=== PATIENT | female | born 1965 | race Caucasian/White ===

== ENCOUNTER 2019-08-23 05:22 | Emergency (ER) | payer OTHER ==
[~2019-08-23] VITALS: Ht 172.7 cm; Wt 90.7 kg
[~2019-08-23 05:22] MED LIST: ASCO1ER; Bactrim Ds Tab1 EACH PO; CYCL10 PO; HYDACE5 PO; IBUP200; METF500 PO; NAPR550 PO; OXYACE10 PO; RXCYCL10 PO; RXHYDACE PO; RXNAPNA550 PO; RXOXYACE PO; RXSULTRIDS PO; SULTRIDS PO; Ultram50 MG PO
[2019-08-23] MEDS ORDERED: LOSARTAN POTASS50 MG PO (05:29)
[2019-08-23] MEDS ORDERED: Percocet 7.5-31 EACH PO (07:03)
[2019-08-23] MEDS ORDERED: Crutch1 EACH MISC (07:04)
== END 2019-08-23 07:25 | disposition home or self-care (01) ==
LOC: ER 05:22
DX: S82.852A Displaced trimalleolar fracture of left lower leg, initial encounter for closed fracture (principal); E11.9 Type 2 diabetes mellitus without complications; Z88.1 Allergy status to other antibiotic agents; Z79.84 Long term (current) use of oral hypoglycemic drugs; W10.9XXA Fall (on) (from) unspecified stairs and steps, initial encounter
CPT/HCPCS: 27818; 73090; 73590; 73600; 73610; 82947; 96374-59; 99283-25; J2250; J3010

== ENCOUNTER 2019-08-24 10:26 | Inpatient (IN) | payer OTHER ==
[~2019-08-24] VITALS: Ht 172.7 cm; Wt 95.5 kg
[~2019-08-24 10:26] MED LIST changes: +Crutch1 EACH MISC; +LOSARTAN POTASS50 MG PO; +Percocet 7.5-31 EACH PO
--- NOTE | 2019-08-24 11:27 | NUR ---
History, Chart, Medications and Allergies reviewed before start of procedure. Lungs clear T/O to Auscultation. Patient confirms NPO status and agrees with scheduled surgery. Pre-Op teaching done. Pt verbalizes understanding. Patient States Post-Procedure ride home has been arranged.
--- NOTE | 2019-08-24 11:32 | NUR ---
1123 NEW ORDERS TO TREAT FOR PAIN CONTROL. WILL GIVE FENTANYL 25MCG IVP UP TO 100MCG MAX. PAIN TO LEFT ANKLE 09/09 1125 FENTANYL 25MCG IVP GIVEN. 1130 FENTANYL 25MCG IVP GIVEN. PAIN LEVEL 8/10
--- NOTE | 2019-08-24 13:48 | NUR ---
[facility]19 [facility] AT 1228 BY NAIF JUNIOR RN IN PRE OP.
--- NOTE | 2019-08-24 19:25 | NUR ---
SHIFT SUMMARY PT A&OX4, S/P ORIF L ANKLE SPLINT/YOLI WRAP, WIGGLES TOES, CAP REFILL WNL. PT STOOD AND TRANSFERRED TO CHAIR ON RLE, STRICT NWB LLE, W/MIN ASSIST. PAIN MANAGED PER EMAR. HARISH PO, DENIES N&V. AT BEDSIDE. REPORT GIVEN TO MARRY PAULINO.
--- NOTE | 2019-08-25 04:05 | NUR ---
SUMMARY POD #1 PT IS NWB TO LEFT LEG, SHE IS A 1 ASSIST TO BS. PT HAS BEEN TRANSERRING HERSELF WITH THE ASSISTANCE OF HER . PT WAS EDUCATED ABOUT THE RISKS OF FALLING AND FURTHER INJURY, SHE WAS STRONGLY ENCOURAGED TO CALL FOR ASSISTANCE BEFORE GETTING OOB. PAIN MANAGED WITH PO MEDS AND A ONE TIME DOSE OF IV DILAUDID. PT IS TOLERATING PO INTAKE. VOIDING WNL. ANKLE IS ELEVATED ON PILLOWS, ICE IN PLACE. SCD TO RIGHT LOWER LEG. CALL LIGHT IN REACH, WCTM.
--- NOTE | 2019-08-25 08:20 | NUR ---
MEDS GIVEN SCHED PT EATING BREAKFAST DR KISER BY TO SEE PT OK TO DISCHARGE HOME AFTER PT/OT
[2019-08-25] MEDS ORDERED: Bactrim Ds Tab1 EACH PO (10:08)
[2019-08-25] MEDS ORDERED: HYDR1TAB94 PO (10:10)
[2019-08-25] MEDS ORDERED: Ecotrin325 MG PO (10:10)
[2019-08-25] MEDS ORDERED: BASAGLAR K100 UNIT/1 SC (10:17)
[2019-08-25] MEDS ORDERED: Humalog100 UNIT/1 (10:18)
--- NOTE | 2019-08-25 11:07 | NUR ---
DISCHARGE INSTRUCTIONS REVIEWED WITH PT VERBALIZED RX CALLED TO [facility] GIVEN FOR DYLON PT AWAITING CALL BACK FOR [facility] FROM [facility]
--- NOTE | 2019-08-25 13:38 | NUR ---
wc escort to car
== END 2019-08-25 14:30 | disposition home or self-care (01) | DRG 494 ==
LOC: ORSCMMR 10:26 → SURS 13:06 → ORSCMMR 13:06 → SURS 16:36
PROVIDERS: ADMIT Orthopaedic Surgery
PROC: 0QHH05Z Insertion of External Fixation Device into Left Tibia, Open Approach (ICD-10-PCS; 2019-08-24)
PROC: 0QSH04Z Reposition Left Tibia with Internal Fixation Device, Open Approach (ICD-10-PCS; principal; 2019-08-24 12:30)
DX: S82.852A Displaced trimalleolar fracture of left lower leg, initial encounter for closed fracture (principal); I10 Essential (primary) hypertension; E11.65 Type 2 diabetes mellitus with hyperglycemia; W10.9XXA Fall (on) (from) unspecified stairs and steps, initial encounter; Y92.009 Unspecified place in unspecified non-institutional (private) residence as the place of occurrence of the external cause; Z87.891 Personal history of nicotine dependence; Z88.8 Allergy status to other drugs, medicaments and biological substances; Z79.84 Long term (current) use of oral hypoglycemic drugs; Z79.899 Other long term (current) drug therapy
CPT/HCPCS: 82947; 94762; 97110; 97116; 97161; 97530; A9270-GY; C1713; C1769; J0171; J0690; J1100; J1170; J1885; J1956; J2250; J2405; J2704; J3010; J3370; J3480; J7120

== ENCOUNTER 2022-09-14 18:48 | Emergency (ER) | payer BC ==
[~2022-09-14] VITALS: Ht 175.3 cm; Wt 88.5 kg
[~2022-09-14 18:48] MED LIST changes: +BASAGLAR K100 UNIT/1 SC; +Ecotrin325 MG PO; +HYDR1TAB94 PO; +Humalog100 UNIT/1
[2022-09-14] MEDS ORDERED: AMOCLA875 PO ×2 (19:28→19:44)
[2022-09-14] MEDS ORDERED: Percocet 5-3251 EACH PO (19:28)
[2022-09-14] MEDS ORDERED: TRAM50 PO (19:42)
== END 2022-09-14 19:49 | disposition home or self-care (01) ==
LOC: ER 18:48
DX: S61.451A Open bite of right hand, initial encounter (principal); E11.9 Type 2 diabetes mellitus without complications; I10 Essential (primary) hypertension; W55.01XA Bitten by cat, initial encounter; Z88.8 Allergy status to other drugs, medicaments and biological substances; Z88.1 Allergy status to other antibiotic agents; Z79.82 Long term (current) use of aspirin; Z79.4 Long term (current) use of insulin; Z79.899 Other long term (current) drug therapy; Z87.891 Personal history of nicotine dependence
CPT/HCPCS: 99283; A9270